=== PATIENT | female | born 1990 | race African-American/Black ===

== ENCOUNTER 2020-04-05 13:37 | Emergency (ER) | payer SELFPAY ==
[~2020-04-05] VITALS: Ht 167.6 cm; Wt 76.8 kg
[2020-04-05 14:24] VITALS: BP 107/58
[2020-04-05 16:29] LABS: CLARITY URINE CLEAR (CLEAR); COLOR URINE YELLOW (YELLOW); KETONES URINE NEGATIVE (NEGATIVE); LEUKOCYTE ESTERASE URINE NEGATIVE (NEGATIVE); NITRITE URINE NEGATIVE (NEGATIVE); OCCULT BLOOD URINE NEGATIVE (NEGATIVE); PROTEIN URINE NEGATIVE (NEGATIVE); SPECIFIC GRAVITY URINE 1.025 (1.005-1.030); UROBILINOGEN URINE 0.2 E.U./dL (0.2-1.0)
[2020-04-05] MEDS ORDERED: AZITHROMYCIN 500 MG TABLET PO ONE (17:00)
[2020-04-05] MEDS ORDERED: CEFTRIAXONE SODIUM 250 MG/VIAL IM ONE (17:00)
[2020-04-05] MEDS ORDERED: LIDOCAINE HCL 1% 20ML VIAL (Pyxis) INJ INFIL ONE (17:00)
[2020-04-08 15:08] LABS: NEISSERIA GONORRHOEAE NAA Negative (Negative)
== END 2020-04-05 17:35 | disposition home or self-care (01) ==
LOC: ER 14:21
DX: N76.0 Acute vaginitis (principal)
CPT/HCPCS: 81003; 81025; 87210; 87491; 87591; 96372; 99283; J0696; J3490